=== PATIENT | female | born 1975 | race Caucasian/White ===

== ENCOUNTER → 2017-02-09 | Outpatient (CLI) | payer BC ==
[~2017-02-09] MED LIST: IUD
--- NOTE | 2017-02-09 16:43 | MAMMOGRAPHY REPORT ---
BILATERAL DIGITAL SCREENING MAMMOGRAM TOMOSYNTHESIS WITH CAD: 02/09/2017 CLINICAL HISTORY: Routine screening. Patient has no complaints. TECHNIQUE: Breast tomosynthesis in addition to standard 2D mammography was performed. Current study was also evaluated with a Computer Aided Detection (CAD) system. COMPARISON: Comparison is made to exams dated: 07/27/2012 ultrasound and 07/27/2012 mammogram - [facility]. BREAST COMPOSITION: The tissue of both breasts is heterogeneously dense, which may obscure small mas ses. FINDINGS: There has been interval reduction mammoplasty. There are 2 partially circumscribed masses in the lateral posterior left breast measuring 8 and 9 mm. Although they could represent cysts, def initive characterization with targeted ultrasound and possible additional mammographic views are courtney mmended. No other suspicious mass, architectural distortion or cluster of microcalcifications is seen bildeoa llleatha. IMPRESSION: ACR BI-RADS CATEGORY 0: INCOMPLETE EVALUATION: NEED ADDITIONAL IMAGING EVALUATION The 2 partially circumscribed subcentimeter masses in the lateral posterior left breast need addition al evaluation. The patient will be called to schedule an appointment. Approximately 10% of breast cancers are not detected with mammography. A negative mammographic report should not delay biopsy if a clinically suggestive mass is present. Marge Burgos M.D. ay/:02/09/2017 15:53:49 Senior Systems Analyst: Valerie Jimenez, [facility] letter sent: Addl Imaging 0 BI-RADS Code: ACR BI-RADS Category 0: Incomplete Evaluation: Need Additional Imaging Evaluation
== END | disposition home or self-care (01) ==
LOC: C.MAMM 11:17
PROVIDERS: ATTEND Obstetrics & Gynecology
DX: Z12.31 Encounter for screening mammogram for malignant neoplasm of breast (principal); N63 Unspecified lump in breast

== ENCOUNTER → 2017-02-18 | Outpatient (CLI) | payer BC ==
--- NOTE | 2017-02-18 14:35 | MAMMOGRAPHY REPORT ---
ULTRASOUND OF LEFT BREAST: 02/18/2017 CLINICAL HISTORY: Callback from screening mammogram for 2 partially circumscribed masses in the left lateral posterior breast measuring 8 and 9 mm. COMPARISON: Comparison is made to exams dated: 07/27/2012 ultrasound and 07/27/2012 mammogram - [facility]. TECHNIQUE: Real-time targeted ultrasound of the left breast was performed. FINDINGS: Real-time, high resolution targeted ultrasound was performed of the left lateral breast in the region of the mammographic masses. In the left breast at 4:00, 5 cm from the nipple, there is a n oval circumscribed anechoic 8 x 4 x 6 mm mass. This corresponds with one of the mammographic gian s and is consistent with a benign simple cyst. Multiple other anechoic benign cysts were also seen d uring the exam, including a 5 x 4 mm anechoic benign simple cyst in the left breast at 3:00, 4 cm fro m the nipple, and a 4 x 4 mm anechoic benign cyst in the left breast at 2:00, 2 cm from the nipple. In the left breast at 2:30, 6 cm from the nipple, there is an oval anechoic circumscribed 6 x 4 mm ma ss, which is felt to correspond with the other mammographic mass and is consistent with a benign cyst . An adjacent anechoic benign 3 x 3 mm cyst is also seen. No suspicious solid masses were evident. IMPRESSION: ACR BI-RADS CATEGORY 2: BENIGN Multiple small benign simple cysts in the left lateral breast on ultrasound, two of which correspond with the mammographic masses. There is no sonographic evidence of malignancy. A 1 year screening ma mmogram is recommended. The patient was verbally notified of the results. Lovely Novoa M.D. /:02/18/2017 10:15:17 [place] Mason: Lovely Novoa MD, [facility] letter sent: Normal 1/2 BI-RADS Code: ACR BI-RADS Category 2: Benign
== END | disposition home or self-care (01) ==
LOC: C.MAMM 09:47
PROVIDERS: ATTEND Obstetrics & Gynecology
DX: N60.02 Solitary cyst of left breast (principal)

== ENCOUNTER → 2017-03-22 | Outpatient (CLI) | payer BC ==
--- NOTE | 2017-03-22 16:18 | DIAGNOSTIC IMAGING REPORT ---
RIGHT WRIST MIN 3 VIEWS ROUTINE CLINICAL HISTORY: M25.531 Wrist pain, [id number] Right trauma. Pain. COMPARISON: None. DISCUSSION: The bones and joint spaces appear intact. There is no evidence of fracture, dislocation or bony disease. There is no evidence for soft tissue swelling. IMPRESSION: Negative study. The above report was generated using voice recognition software. It may contain grammatical, syntax or spelling errors. Electronically signed by: Lucas Gandhi M.D. 03/22/2017 4:17 PM Dictated Date/Time: 03/22/2017 4:16 PM
== END | disposition home or self-care (01) ==
LOC: C.RAD1850 16:07
PROVIDERS: ATTEND Nurse Practitioner
DX: M25.531 Pain in right wrist (principal)

== ENCOUNTER → 2017-10-06 | Outpatient (CLI) | payer OTHER | LOC: C.LABBFT 15:27 | PROVIDERS: ATTEND Internal Medicine | DX: J02.9 Acute pharyngitis, unspecified (principal) ==